=== PATIENT | male | born 1950 | race Caucasian/White ===

== ENCOUNTER 2020-05-25 03:18 | Inpatient (IN) | payer OTHER ==
[2020-05-25] VITALS (53 sets, daily range): BP systolic 69–126; BP diastolic 37–70
[~2020-05-25] VITALS: Ht 167.6 cm; Wt 68.9 kg
[2020-05-25 04:03] LABS: ABSOLUTE NEUTROPHILS 7.7 thou/uL (1.4-8.2); BASOPHILS 0.2 % (0.0-2.0); EOSINOPHILS 0.3 % (0.0-3.0); HEMATOCRIT 35.6 % (42.0-52.0); HEMOGLOBIN 11.9 gm/dL (14.0-18.0); LYMPHOCYTES 2.7 % (24.0-44.0); MCH 32.2 pg (26.0-34.0); MCHC 33.5 g/dL (28.0-37.0); MONOCYTES 2.1 % (1.0-8.0); PLATELET COUNT 224 thou/uL (150-400); POLYS 94.7 % (36.0-66.0); RBC 3.71 mil/uL (4.50-6.00); RDW 14.3 % (10.5-14.5); WBC 8.1 thou/uL (4.0-11.0)
[2020-05-25 04:10] LABS: CALCIUM 8.9 mg/dL (8.5-10.1); CREATININE 2.3 mg/dL (0.7-1.3); POTASSIUM 3.6 mmol/L (3.5-5.1)
[2020-05-25 04:14] LABS: URINE BILIRUBIN NEGATIVE (Negative); URINE BLOOD TRACE (Negative); URINE CLARITY CLEAR; URINE COLOR YELLOW; URINE GLUCOSE-RANDOM* NEGATIVE (Negative); URINE KETONES NEGATIVE (Negative); URINE LEUKOCYTES-REFLEX NEGATIVE (Negative); URINE NITRITE-REFLEX NEGATIVE (Negative); URINE PROTEIN (DIPSTICK) TRACE (Negative); URINE SPECIFIC GRAVITY 1.025 (1.005-1.035); URINE UROBILINOGEN 0.2 E.U./dl (0.2-1.0)
[2020-05-25 04:25] LABS: ALBUMIN 2.7 g/dL (3.4-5.0); DIRECT BILIRUBIN 0.6 mg/dL (<0.1-0.2); TOTAL PROTEIN 7.2 g/dL (6.4-8.2)
[2020-05-25] MEDS ORDERED: BUPROPION HCL100 MG PO (06:03)
[2020-05-25] MEDS ORDERED: KLOR-CON 1010 MEQ PO (06:03)
[2020-05-25] MEDS ORDERED: ALLOPURINOL 10100 M1 PO (06:04)
[2020-05-25] MEDS ORDERED: ZESTRIL40 MG PO (06:05)
[2020-05-25] MEDS ORDERED: TRAMADOL 50 MG50 MG PO (06:05)
[2020-05-25] MEDS ORDERED: AMITRIPTYLINE100 MG PO (06:06)
[2020-05-25] MEDS ORDERED: HYDROCODON-ACE1 EAC7 PO (06:06)
[2020-05-25] MEDS ORDERED: LIPITOR40 MG PO (06:07)
[2020-05-25] MEDS ORDERED: ACETAMINOPHEN325 MG PO (06:08)
[2020-05-25] MEDS ORDERED: OMEPRAZOLE 20 M20 M1 PO (06:09)
[2020-05-25] MEDS ORDERED: NORVASC 2.5 MG2.5 M1 PO (06:09)
[2020-05-25] MEDS ORDERED: CHLORTHALIDONE25 MG PO (06:10)
[2020-05-25] MEDS ORDERED: ATENOLOL 100MG100 MG PO (06:10)
--- NOTE | 2020-05-25 12:16 | NUR ---
@ APPROX. 1200, PT'S DAUGHTER, KENNY WARE, CALLED FOR UPDATE. SPOKE WITH KENNY REGARDING CURRENT PT STATUS, AND VISITING POLICIES. REASSURANCE AND EMOTIONAL SUPPORT PROVIDED.
--- NOTE | 2020-05-25 16:46 | NUR ---
IV TEAM HERE TO PLACE CENTRAL LINE.
--- NOTE | 2020-05-25 17:54 | NUR ---
[id number] PLACED RT SIDE. PLEASE SEE NI FOR DETAILS
--- NOTE | 2020-05-25 18:19 | NUR ---
PT IS OFF COVID-19 ISOLATION. PT IS AAOX4 AND STATES HE FEELS 200 TIMES BETTER. TITRATING LEVOPHED DOWN. PT DENIES RUQ PAIN EXCEPT WITH MOVEMENT. TOLERATING ICE CHIPS WITHOUT PROBLEMS, BUT DR. HARRISON DOES NOT WANT THE PATIENT TO HAVE ANYTHING MORE THAN THAT AT THIS TIME. URINE OUTPUT HAS BEEN EXCELLENT. VAT PLACED RIJ TL PICC THIS EVENING. OVERALL PROGRESSING TOWARD GOALS.
[2020-05-26] VITALS (18 sets, daily range): BP systolic 98–138; BP diastolic 47–79
--- NOTE | 2020-05-26 05:26 | HC ---
[facility] [place] [address] CONSULTATION Name: EDYTA EVANGELISTA Room #: 246-P ADM IN M.R.#: [id number] Admission: 05/25/20 Attend Phys: Willard Watt MD Discharge: Date of : 54 Report #: [id number] THIS REPORT FOR: cc: FAM - Family physician unknown FAM - Family physician unknown Moises Black MD ~ DATE OF SERVICE: 05/25/2020 INFECTIOUS DISEASE CONSULTATION ATTENDING PHYSICIAN: Dr. Watt. REASON FOR EVALUATION: Sepsis. HISTORY OF PRESENT ILLNESS: Chart reviewed, patient examined. This is a 69-year-old with known history of carcinoid diagnosed in 2003, who presented to the Emergency Room with marked encephalopathy. It is noted that apparently his pain ____ notes he was taking the prescribed amount of narcotics in addition to octreotide. He is more lucid than he was in the Emergency Room, underwent evaluation, which was fairly unremarkable. Lactic acid was slightly elevated at 2.2, that has since come down. Urinalysis was unremarkable. Chest CT, no evidence of acute inflammatory pathology. CT abdomen and pelvis noted, they are just concerned about possible gallbladder related mass. Blood cultures have been collected and in progress. Empirically started on therapy with Zosyn and vancomycin. At this point, he does complain about pain. He denies any significant pulmonary complaints. REVIEW OF SYSTEMS: He notes he has got a couple of teeth that are somewhat problematic, although he denies significant pain. No sinus tenderness, sore throat. No new onset of eruptions. He knows he is homeless, however, clarified that he rents a spare bedroom with his . COVID testing is pending. Denies any significant pulmonary-related complaints. He has maintained his weight, although he eats less. There has been no fever that he is aware of. ALLERGIES: None known. MEDICATIONS: Currently include enoxaparin, Zosyn, norepinephrine, given dose of vancomycin as well. PAST MEDICAL HISTORY: As described above, history of carcinoid tumor diagnosed in 2003, chronic associated pain. SOCIAL HISTORY: Available in chart. FAMILY HISTORY: Available in chart. [address] [address] CONSULTATION Name: EDYTA EVANGELISTA FRANK Room #: 246-P [facility] IN .R.#: [id number] Admission: 05/25/20 Attend Phys: Willard Watt MD Discharge: Date of : 54 Report #: [id number] PHYSICAL EXAMINATION: GENERAL: He appears somewhat chronically ill. He is pleasant, cooperative, diminished affect, appears mildly undernourished, in moderate distress. VITAL SIGNS: Temperature 101.9 earlier, pulse 60, respirations 15, blood pressure 75/42. SKIN: Warm, dry, no rashes. HEENT: Normocephalic. Extraocular muscles intact. NECK: Supple. LUNGS: Generally clear to auscultation. HEART: Regular. Borderline bradycardic. I do not appreciate a murmur. ABDOMEN: Mildly distended. He is tender in the right upper quadrant. GENITOURINARY: Deferred. RECTAL: Deferred. LABORATORY DATA: Most recent lactic acid 1.8, that is down from 2.2. CT abdomen, pelvis and chest as described above. COVID testing: Initial antigen test was negative. PCR pending. Influenza antigen was negative. Electrolytes: Sodium 138, potassium 3.6, chloride 100, bicarbonate is 17, anion gap of 21, BUN and creatinine 49 and 2.3, glucose of 93, alkaline phosphatase elevated at 1150 with transaminases in the normal range. Albumin ____, total protein 7.2. Estimated GFR of 29. Urinalysis unremarkable. CBC: White count of 8.1, H and H 11.9 and 35.6, platelets of 224. ASSESSMENT AND PLAN: Febrile illness. The patient with known history of carcinoid, who apparently was found to be markedly encephalopathic. I agree with empiric therapy. We will await blood culture results. I do not see any general focus of pyogenic infection at this point. Does have ongoing chronic pain. We will add lipase and likely favor some sort of intra-abdominal source if indeed has a focus of infection versus some sort of viral etiology. We will await followup coronavirus testing as well. <ELECTRONICALLY SIGNED> By: Moises Black MD 05/26/20 0526 [id number] [id number] Moises Black MD /nt
[2020-05-26 05:57] LABS: HEMATOCRIT 36.5 % (42.0-52.0); HEMOGLOBIN 11.9 gm/dL (14.0-18.0); MCHC 32.4 g/dL (28.0-37.0); MCV 95.5 fL (80.0-100.0); RBC 3.82 mil/uL (4.50-6.00); RDW 14.9 % (10.5-14.5); WBC 16.1 thou/uL (4.0-11.0)
[2020-05-26 06:09] LABS: CALCIUM 8.2 mg/dL (8.5-10.1); CREATININE 1.5 mg/dL (0.7-1.3); POTASSIUM 3.3 mmol/L (3.5-5.1)
--- NOTE | 2020-05-26 13:30 | NUR ---
ASSUMED CARE AT 0700. REPORT WAS GIVEN TO LISA ZAIDI ON CCU AND PATIENT WAS TRANSFERRED TO CCU AT 1246. PATIENT HAD NO BELONGINGS WITH HIM IN THE ROOM AND WAS TRANSFERRED WITH HIS CHART AND HIS LUNCH TRAY.
--- NOTE | 2020-05-26 18:14 | NUR ---
PT ARRIVED TO CCU, ASSESSED, AOX4, SOME PAIN, WAS GIVEN MEDS, ABLE TO AMBULATE TO THE BATHROOM SAFELY, INTRODUCED STAFF AND DISCUSSED POC, PT UNDERSTANDS THAT HE IS TO HAVE A BIOPSY ON WEDNESDAY, CALLED HIS TO LET HER KNOW OF ROOM CHANGE. CALL LIGHT IN BED, URINAL AT SIDE IS EASIER WHEN CONNECTED TO IV ANTIBIOTICS
--- NOTE | 2020-05-26 23:25 | NUR ---
2049 - SPOKE WITH PT'S DTR KENNY REGARDING POC AND PLAN FOR LESION BIOPSY ON WEDNESDAY. 2234 - TALKED AGAIN TO KENNY ON THE PHONE. SHE HAD MULTIPLE QUESTIONS ABOUT PT'S CANCER STATUS AND THE DOCTOR'S OVERALL PLAN OF CARE. SHE IS AWARE THAT THE CT ABDOMEN/PELVIS SHOWED MULTIPLE LESIONS IN THE ABDOMINAL REGION. SHE IS ALSO AWARE AN ABDOMINAL ULTRASOUND WAS COMPLETED THIS EVENING. SHE WOULD LIKE TO TALK TO SOME OF HER FATHER'S PHYSICIANS TOMORROW FOR ANSWERS TO SOME OF HER QUESTIONS.
--- NOTE | 2020-05-27 04:02 | NUR ---
ASSUMED PT CARE AROUND 1900. A&OX4, FORGETFUL. DENIES ANY N/V. PT DENIED ANY SIGNIFICANT ABDOMINAL PAIN DURING THE NIGHT. HE SLEPT MOST OF THE NIGHT. RESPIRATIONS EVEN AND UNLABORED. UP AD BRENDON TO BTR WITH STEADY GAIT. IV ABX ADMINISTERED ORDERED. PROGRESSING SLOWLY TOWARD POC GOALS. WILL CONTINUE TO MONITOR FURTHER.
[2020-05-27 04:32] VITALS: BP 107/62
[2020-05-27 05:35] LABS: HEMATOCRIT 33.3 % (42.0-52.0); HEMOGLOBIN 11.1 gm/dL (14.0-18.0); MCH 31.2 pg (26.0-34.0); MCHC 33.3 g/dL (28.0-37.0); MCV 93.7 fL (80.0-100.0); RBC 3.55 mil/uL (4.50-6.00); RDW 14.8 % (10.5-14.5); WBC 16.6 thou/uL (4.0-11.0)
[2020-05-27 05:41] LABS: CALCIUM 8.4 mg/dL (8.5-10.1); CREATININE 1.5 mg/dL (0.7-1.3); POTASSIUM 3.2 mmol/L (3.5-5.1)
[2020-05-27 07:05] VITALS: BP 110/56
--- NOTE | 2020-05-27 07:33 | EKG ---
[address] [place] [address] ELECTROCARDIOGRAM REPORT Name: EDYTA EVANGELISTA Room #: 210-P ADM IN M.R.#: [id number] Admission: 05/25/20 Attend Phys: Willard Watt MD Discharge: Date of : 54 Report #: [id number] ED Test Date: 2020-05-25 Test Time: 03:55:48 Pat Name: EDYTA EVANGELISTA Department: Room: 210 P Gender: M [employer] Worker: julius ayala : 1950 Requested By: Willard Watt Order Number: [id number] MD: Sarmad Carlson Measurements Intervals [place] Rate: 80 P: 52 [place]: 206 QRS: -14 QRSD: 101 T: 80 QT: 385 QTc: 445 Interpretive Statements Sinus rhythm No significant abnormality No previous ECG available for comparison Electronically Signed On 05-27-2020 7:33:44 [employer]INKEY [employer] by Sarmad Carlson [email or web address] <ELECTRONICALLY SIGNED> By: Sarmad Carlson MD, MERGED WITH [facility] 05/27/20 0733 [id number] [id number] Sarmad Carlson MD, FACC /EPI
[2020-05-27 11:00] VITALS: BP 118/77
[2020-05-27 15:15] VITALS: BP 129/79
--- NOTE | 2020-05-27 17:56 | NUR ---
ASSESSMENT CHARTED - MEDS PER AUG - PT GIVEN TRAMADOL AND HYDROCODONE 1 DOSE OF EACH FOR CO'S OF PAIN IN ABDOMEN. PT FEELING NAUSEATED HIS AM GIVEN ZOFRAN WITH GOOD RESULTS. ATE POORLY FOR BREAKFAST BUT WELL THE REST OF THE DAY. UP TO THE BATHROOM - SHOWERED THIS AFTERNOON. DAUGHTER IN TO VISIT. NO CO'S AT THE PRESENT TIME.
[2020-05-27 19:23] VITALS: BP 140/86
[2020-05-28 04:56] VITALS: BP 127/71
--- NOTE | 2020-05-28 06:21 | NUR ---
pt resting quietly in room thru the noc, npo after mnoc, prn pain pain meds given for abd. pain at hs, vss, will con't to monitor per ppoc.
[2020-05-28 07:44] LABS: HEMATOCRIT 35.9 % (42.0-52.0); HEMOGLOBIN 11.7 gm/dL (14.0-18.0); MCH 30.6 pg (26.0-34.0); MCHC 32.6 g/dL (28.0-37.0); RBC 3.82 mil/uL (4.50-6.00); RDW 14.9 % (10.5-14.5)
[2020-05-28 07:50] LABS: CALCIUM 8.7 mg/dL (8.5-10.1); CREATININE 1.5 mg/dL (0.7-1.3)
[2020-05-28 08:17] VITALS: BP 125/72
[2020-05-28 11:01] VITALS: BP 115/69
[2020-05-28 11:24] LABS: MAGNESIUM 1.5 mg/dL (1.8-2.4)
[2020-05-28 15:36] VITALS: BP 125/70
--- NOTE | 2020-05-28 16:55 | NUR ---
Met with patient who admits with abd pain/sepsis. Patient resides at home with . He lives in independent home with steps inside. Patient reports no hx of dme. 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 Patient was working at [employer] 2 days a week. He drives. PCP Dr Roula Ayala from [facility]. Patient to have exploratory lap tomorrow. [facility]emgt following for dc planning.
--- NOTE | 2020-05-28 17:57 | NUR ---
PT RECEIVED PRN PAIN MEDS FOR ABD PAIN WITH PARTIAL RELIEF. BIOPSY/LAPRO SCHEDULED FOR TOMORROW. NPO AFTER MIDNIGHT. PT ON ELECTROLYTE PROTOCOL. SR ON TELE. NO CONCERNS AT THIS TIME. WILL CONTINUE WITH POC.
[2020-05-28 19:20] VITALS: BP 110/68
[2020-05-29] VITALS (8 sets, daily range): BP systolic 105–144; BP diastolic 62–90
[2020-05-29 05:46] LABS: HEMATOCRIT 34.4 % (42.0-52.0); HEMOGLOBIN 11.3 gm/dL (14.0-18.0); MCHC 32.7 g/dL (28.0-37.0); MCV 94.7 fL (80.0-100.0); RBC 3.63 mil/uL (4.50-6.00); RDW 15.4 % (10.5-14.5); WBC 16.6 thou/uL (4.0-11.0)
[2020-05-29 05:51] LABS: CALCIUM 8.5 mg/dL (8.5-10.1); CREATININE 1.5 mg/dL (0.7-1.3); POTASSIUM 3.5 mmol/L (3.5-5.1)
--- NOTE | 2020-05-29 18:48 | NUR ---
ASSESSMENT CHARTED. PT ALERT AND OREIENTED. VSS. PRN PAIN MED GIVEN WITH PARTIAL RELIEF. HAD BIOPSY TODAY. SR ON TELE. IV ABX GIVEN. NO CONCERNS AT THIS TIME.
[2020-05-30 03:50] VITALS: BP 152/91
--- NOTE | 2020-05-30 06:30 | NUR ---
PATIENT SLEPT THROUGH MOST OF THE NIGHT. A&OX4. USES URINAL AT BEDSIDE. UP AD BRENDON W/ STEADY GAIT. PRN PAIN MEDS GIVEN PER ORDERS. VSS. CONTINUING TO ASSESS CLOSESLY ACCORDING TO POC.
[2020-05-30 07:30] VITALS: BP 138/75
[2020-05-30 08:40] LABS: ABSOLUTE NEUTROPHILS 14.5 thou/uL (1.4-8.2); BASOPHILS 0.2 % (0.0-2.0); HEMATOCRIT 36.8 % (42.0-52.0); HEMOGLOBIN 11.9 gm/dL (14.0-18.0); LYMPHOCYTES 4.7 % (24.0-44.0); MCH 30.6 pg (26.0-34.0); MCHC 32.3 g/dL (28.0-37.0); MCV 94.6 fL (80.0-100.0); MONOCYTES 2.2 % (1.0-8.0); PLATELET COUNT 330 thou/uL (150-400); POLYS 92.9 % (36.0-66.0); RBC 3.89 mil/uL (4.50-6.00); RDW 15.2 % (10.5-14.5); WBC 15.6 thou/uL (4.0-11.0)
[2020-05-30 08:46] LABS: CALCIUM 9.4 mg/dL (8.5-10.1); CREATININE 1.3 mg/dL (0.7-1.3); MAGNESIUM 2.2 mg/dL (1.8-2.4); POTASSIUM 4.1 mmol/L (3.5-5.1)
[2020-05-30] MEDS ORDERED: AMOX TR-K CLV1 EAC4 PO (10:29)
[2020-05-30 11:05] VITALS: BP 137/81
--- NOTE | 2020-05-30 12:14 | NUR ---
PT SEEN BY DR MARMOLEJO AND DR MUSE. PT DISCONTINUE CENTRAL LINE CATHETHER, ALL IV MEDS. PT IS PLEASANT, RESTING COMFORTABLY, DENIES ANY PAIN.
[2020-05-30 12:24] VITALS: BP 137/81
--- NOTE | 2020-05-30 12:56 | NUR ---
PT SEEN BY DR CHILDS. DISCHARGE EDUCATION CONDUCTED. PT MADE AWARE OF FOLLOW UP APPT WITH PCP, ONCOLOGIST. PT ALSO EDUCATED ON CURRENT MEDICATIONS; INSTRUCTED TO FOLLOW UP WITH PCP REGARDING DISCONTINUED MEDICATIONS. PT ALSO INSTRUCTED TO CONTINUE INCENTIVE SPIROMETRY. PT INDICATED UNDERSTANDING. NO CONCERNS AT THIS TIME. PT TO DISCHARGE HOME.
--- NOTE | 2020-06-03 10:28 | O ---
[facility] [place] [address] OPERATIVE REPORT Name: EDYTA EVANGELISTA Room #: [facility] IN M.R.#: [id number] Admission: 05/25/20 Attend Phys: Willard Watt MD Discharge: 05/30/20 Date of : 54 Report #: [id number] THIS REPORT FOR: cc: FAM - Family physician unknown FAM - Family physician unknown Anson Michelle MD ~ DATE OF SERVICE: 05/29/2020 PREOPERATIVE DIAGNOSIS: Carcinomatosis. POSTOPERATIVE DIAGNOSIS: Carcinomatosis. OPERATION: 1. Diagnostic laparoscopy with a biopsy of a gallbladder mass. 2. Diagnostic laparoscopy with biopsy of liver masses. SURGEON: Anson Michelle MD ANESTHESIA: General. ESTIMATED BLOOD LOSS: Minimal. SPECIMENS: 1. Gallbladder mass. 2. Anterior left lobe liver mass. 3. Posterior left lobe liver mass. DESCRIPTION OF PROCEDURE: After informed consent was obtained, the patient was brought to the operating room and placed supine. SCDs were placed and working, preoperative antibiotics were administered, general anesthesia was induced. The abdomen was prepped and draped in the usual sterile fashion. A 5 mm incision was made in the left upper quadrant. A 5 mm trocar was placed under direct vision. Pneumoperitoneum was established. A 5 mm trocar was placed in the epigastrium under direct vision. I first examined the gallbladder. It was hard. There was a hard mass anterior to the gallbladder consistent with the CT findings. I used a laparoscopic scissor to wedge out a segment measuring approximately 3 x 1 mm. I then directed my attention to the anterior liver. A Ovidio-Cut biopsy needle was inserted into the mass, which was in the left anterior hemiliver. Two fires were taken and 2 specimens were sent off. There was a mass near the lesser curvature of the stomach in the posterior left liver. This was biopsied also with a Ovidio-Cut biopsy. There was good hemostasis. The ports were removed under direct vision. The skin was closed [address] [address] OPERATIVE REPORT Name: EDYTA EVANGELISTA FRANK Room #: [facility] IN ..#: [id number] Admission: 05/25/20 Attend Phys: Willard Watt MD Discharge: 05/30/20 Date of : 54 Report #: [id number] with 4-0 Monocryl. Incisions were dressed with Steri-Strips. COMPLICATIONS: None. DISPOSITION: The patient was taken to recovery in satisfactory condition. <ELECTRONICALLY SIGNED> By: Anson Michelle MD 06/03/20 1028 1636 1727 Anson Michelle MD /nt
== END 2020-05-30 13:35 | disposition home or self-care (01) | DRG 853 ==
LOC: ER 03:18 → 2N 06:27 → EROBS 06:27 → ICU 07:23 → 2N 05-26 13:51
PROVIDERS: Emergency Medicine; Hospitalist; Internal Medicine; ADMIT Hospitalist; ATTEND Hospitalist
DX: A41.50 Gram-negative sepsis, unspecified (principal); J96.01 Acute respiratory failure with hypoxia; R65.21 Severe sepsis with septic shock; C80.0 Disseminated malignant neoplasm, unspecified; N17.9 Acute kidney failure, unspecified; G93.40 Encephalopathy, unspecified; E46 Unspecified protein-calorie malnutrition; I95.9 Hypotension, unspecified; G89.29 Other chronic pain; E78.5 Hyperlipidemia, unspecified; M10.9 Gout, unspecified; I10 Essential (primary) hypertension; R16.0 Hepatomegaly, not elsewhere classified; Z20.828 Contact with and (suspected) exposure to other viral communicable diseases; K81.9 Cholecystitis, unspecified; D3A.098 Benign carcinoid tumors of other sites; Z68.24 Body mass index [BMI] 24.0-24.9, adult; Z79.899 Other long term (current) drug therapy
CPT/HCPCS: 10078; 10081; 50010; 50101; 50411; 50555; 51046; 51489; 52265; 52266; 56462; 56526; 62110; 62900; 70005